=== PATIENT | male | born 1975 | race Caucasian/White ===

== ENCOUNTER 2025-08-28 13:07 | Day surgery (SDC) | payer OTHER, SELFPAY ==
--- NOTE | 2025-08-25 08:27 | P.HP_ITS ---
History of Present Illness *Admission Date: 08/28/25 *History of present illness: Mr. Limon is a 50-year-old gentleman who is here for diagnostic EGD. He does have symptoms of GERD. He does take rdfj-kmy-vqeslja famotidine. He quit drinking alcohol 9 months ago and now feels better. He also states that tea made this worse. He does state that his symptoms would almost always occur when he lay down. He has had acid reflux for more than 10 years. He did have an upper endoscopy in [facility] in 2018 (Alexys Chan). He does not have that report. He does state that he was told that he had a leaky valve . He does state that this often occurs with epigastric abdominal burning but when he lies down this moves up into his chest. He feels as if lava is coming up into his esophagus. When he stopped drinking beer this improved. He was initially placed on omeprazole and started buying [id number] Prilosec. He did eventually read about PPIs and decided to stepdown to famotidine OTC which she is doing presently. He reports no present heartburn, reflux, indigestion, bloating, belching or dyspepsia. He reports no dysphagia. [facility] Disclaimer: The information contained in this section may have been updated after the patient was seen, as this information can be updated by other users. Medical History GERD (gastroesophageal reflux disease) Vitamin D deficiency Surgical History Hx of esophagogastroduodenoscopy No history of previous surgery Family History Other Family history non-contributory Social History (Updated 08/28/25 @ 13:23 by Janelle Mar RN) Smoking Status: Former smoker alcohol intake: former substance use type: denies use current occupational status: employed Travel in the last 8 weeks?: Inside the [place] caffeine: No Have you lived/traveled outside [place] in past 30 days?: No Contact w/someone who lives/traveled outside US past 30 days?: No Exposure to someone with infectious disease in past 14 days?: No Do you have a fever (greater than 100.4 F or 38 C)?: No Have you tested positive for COVID-19?: No Exposed to someone with COVID-19 in past 14 days?: No Do you have a sore throat?: No Do you have a cough?: No Do you have any weakness?: No Are you experiencing any nausea/vomitting?: No Do you have any diarrhea?: No Are you experiencing any unusual bleeding?: No Do you have any muscle aches/pain?: No Do you have any abdominal pain?: No Are you experiencing loss of taste or smell?: No Review of Systems Review of Systems Review of systems (narrative): Negative *Cardiovascular Comments: Negative *Gastrointestinal Comments: Negative *Genitourinary Comments: Negative *Musculoskeletal Comments: Negative *Neurologic Comments: Negative Meds Home Medications and Allergies Home Medications ?Medication ?Instructions ?Recorded ?Confirmed ?Type diphenhydramine HCl 25 mg tablet 25 mg PO HS PRN aller gies 06/14/25 08/28/25 History (Allergy Medicine) famotidine 10 mg tablet 10 mg PO DAILY 06/14/2508/01 History amino acids-multivit with iron and 1 pkg PO DAILY 08/0108/28/25 History minerals oral combo pack New Prescriptions to Start Prescriptions: Allergies Allergy/AdvReac Type Severity Reaction Status Date / Time No Known Allergies Allergy Verified 08/28/25 13:17 Exam *Routine HEENT Exam Head: Present normocephalic Eye: Present EOMI and PERRL ENT: Present mucous membranes moist *Routine Neck Exam Neck: Present supple *Routine Respiratory Exam Respiratory: Present CTA bilaterally *Routine Cardiovascular Exam Cardiovascular: Present RRR *Routine Abdominal Exam Abdominal: Present soft and normoactive bowel sounds; Absent tenderness *Routine Rectal Exam Rectal:: deferred *Routine Genitalia Exam Genitalia:: deferred *Routine Extremities Exam Extremities: Absent cyanosis, clubbing or edema *Routine Skin Exam Skin: Present warm; Absent rash *Routine Neurological Exam Neurological: Present alert and oriented X3 Assessment and Plan *Assessment and plan (1) Dyspepsia: Status: Acute Category: Medical Code(s): R10.13 - Epigastric pain (2) Pyrosis: Status: Acute Category: Medical Code(s): R12 - Heartburn (3) Heartburn: Status: Acute Category: Medical Code(s): R12 - Heartburn (4) GERD (gastroesophageal reflux disease): Status: Acute Category: Medical Code(s): K21.9 - Gastro-esophageal reflux disease without esophagitis Plan A/P: 1. Pyrosis, heartburn, dyspepsia and GERD is the preprocedural diagnosis. The patient will be anesthetized/sedated using MAC sedation. The patient has been seen and examined. Cardiac and lung assessment prior to the examination is stable. Proceed with planned diagnostic EGD.
--- NOTE | 2025-08-28 07:08 | P.PCN_ITS ---
[facility] Procedure Note Date: 08/28/25 Time: 14:13 Procedure Note:: Upper Endoscopy Procedure Report: Esophagogastroduodenoscopy with cold biopsies and TTS balloon dilation Endoscopost: Errol Avery II, MD Referring Physician: Lamine Limon MD Date of Procedure: August 28, 2025 Equipment: Olympus GIF-1100 standard upper endoscope Sedation: MAC sedation Indications: Mr. Limon is a 50-year-old gentleman who is here for diagnostic EGD. He does have some longstanding symptoms of GERD. Since the patient had seen me in the office on 06/14/2025, he has had a loss of voice with hoarseness. He does take gxnk-piu-vnnccgo famotidine. He quit drinking alcohol 9 months ago and now feels better. He also states that tea made this worse. He does state that his symptoms would almost always occur when he lies down. He has had acid reflux for more than 10 years. He did have an upper endoscopy in [facility] in 2018 (Alexys Chan). He does not have that report. He does state that he was told that he had a leaky valve . He does state that this often occurs with epigastric abdominal burning but when he lies down this moves up into his chest. He feels as if lava is coming up into his esophagus. When he stopped drinking beer this improved. He was initially placed on omeprazole and started buying [id number]-[id number] Prilosec. He did eventually read about PPIs and decided to stepdown to famotidine OTC which he is doing presently. He reports no present heartburn, reflux, indigestion, bloating, belching or dyspepsia. He reports no dysphagia. Procedure: Prior to the procedure, a history and physical exam was performed, and patient's medications and allergies were reviewed. The risks, benefits and alternatives of the sedation and procedure were discussed with the patient. All questions were answered and informed consent was obtained. The patient was brought to the procedure room. Patient identification and proposed procedure were verified by the physician and the nurse. The patient was placed in a left lateral decubitus position and the scope was passed under direct vision. Throughout the procedure, the patient's blood pressure, pulse, and oxygen saturations were monitored continuously. The upper GI endoscopy was accomplished without dif ficulty. The patient tolerated the procedure well. Findings: The scope was passed directly into the upper esophagus and advanced to the third portion of the duodenum. The post bulbar duodenum and duodenal bulb were normal with normal mucosa and conniventes. A cold biopsy was taken from the second portion of the duodenum for the disaccharidase assay. The scope was withdrawn through a normal duodenal bulb and pylorus into the stomach. There was some mild linear gastropathy of the antrum. The body and fundus of the stomach were grossly normal. Upon retroflexion there was a 2 cm hiatal hernia. Cold biopsies were taken from the antrum. The scope was then withdrawn into the esophagus. There was grade C (LA classification) reflux esophagitis with linear superficial erosion and superficial ulceration at the GE junction. Cold biopsies were taken from the distal esophagus/GE junction to rule out intestinal metaplasia. There was no obvious Cervantes's esophagus. There were tertiary co ntractions and evidence of mild esophageal dysmotility. There was some cricopharyngeal spasm with dilation of the esophagus to 20 mm/60 German. The remainder of the esophageal mucosa was normal. There was some asymmetry of the false cords with evidence of polyp on the true vocal cords. Impression: 1. Grade C (LA classification) reflux esophagitis with small 2 cm hiatal hernia 2. Cricopharyngeal spasm with mild esophageal dysmotility 3. Vocal cord polyp Plan: The patient does have complicated GERD with reflux esophagitis. Uncomplicated GERD (gastro-esophageal reflux disease) is primarily defined as heartburn and reflux symptoms that occur intermittently and at the time of endoscopy there are no breaks in the esophageal lining caused by esophageal reflux. This can be controlled by dietary measures, short-term antacids or short-term acid reflux therapy. Complicated GERD is defined by having more advanced changes with ulceration, erosion or damage to the esophagus and/or with the presence of Cervantes's esophagus. The patient does not have any obvious Cervantes's. With complicated GERD/reflux we are more apt to recommend proton pump inhibitors (i.e. omeprazole) or Voquezna which are more effective in treating GERD long-term and the risks of not taking a PPI outweigh any risk of taking this therapy. I am going to recommend Voquezna and send this electronically to the pharmacy. I will follow-up the biopsies. I am also going to refer the patient to ENT because of the vocal cord polyp and loss of voice.
[2025-08-28 13:16] VITALS: BP 134/86; PULSE 99; RESP 18; TEMP 36.3; O2SAT 97
[2025-08-28 13:28] VITALS: BMI 22.7
[2025-08-28] MEDS: LACTATED RINGERS 1000ML 1,000 ML 50 ML IV (13:30)
--- NOTE | 2025-08-28 13:42 | EXP.ANES.CKL ---
[facility] Disclaimer: The information contained in this section may have been updated after the patient was seen, as this information can be updated by other users. Medical History GERD (gastroesophageal reflux disease) Vitamin D deficiency Surgical History Hx of esophagogastroduodenoscopy No history of previous surgery Family History Other Family history non-contributory Social History (Updated 08/28/25 @ 13:23 by Janelle Mar RN) Smoking Status: Former smoker alcohol intake: former substance use type: denies use current occupational status: employed Travel in the last 8 weeks?: Inside the [place] caffeine: No Have you lived/traveled outside US in past 30 days?: No Contact w/someone who lives/traveled outside [place] past 30 days?: No Exposure to someone with infectious disease in past 14 days?: No Do you have a fever (greater than 100.4 F or 38 C)?: No Have you tested positive for COVID-19?: No Exposed to someone with COVID-19 in past 14 days?: No Do you have a sore throat?: No Do you have a cough?: No Do you have any weakness?: No Are you experiencing any nausea/vomitting?: No Do you have any diarrhea?: No Are you experiencing any unusual bleeding?: No Do you have any muscle aches/pain?: No Do you have any abdominal pain?: No Are you experiencing loss of taste or smell?: No [facility] Anesthesia Checklist Patient Identification Patient Identification: Arm Band and Family Structural Data Admitted From: Home Planned Operative Procedure/s: EGD Consent for Planned Operative Procedure(s) Verified: Yes Verified Documents: Surgical Consent and History and Physical NPO Status Verified Time NPO: 00:00 Additional verifications Patient : No Anesthesia Reactions: No Hx Blood Transfusions: No Blood Transfusion Reaction: No Cephalosporin Allergy: No Previous Colonoscopy: No Airway Assessment Mallampati Score:: Class II C-Spine Mobility Assessed: Yes TMJ Mobility Assessed: Yes Neurological Assessment Level of Consciousness: Awake, Alert, Appropriate and Follows Commands Hx Seizures: No Numbness or tingling in extremities: No Anesthesia Plan Anesthesia Risk discussed: Yes ASA Class: II Anesthesia Type: MAC Preoperative Comments Pre-Operative Comments: Acid Reflux
[2025-08-28 14:16] VITALS: BP 107/22; PULSE 88; RESP 17; TEMP 36.3; O2SAT 94
[2025-08-28 14:26] VITALS: BP 105/70; PULSE 83; RESP 18; TEMP 36.3; O2SAT 94
[2025-08-28 14:36] VITALS: BP 112/77; PULSE 94; RESP 18; TEMP 36.3; O2SAT 94
[2025-08-28 14:46] VITALS: BP 117/70; PULSE 92; RESP 18; TEMP 36.3; O2SAT 95
[2025-08-31 13:23] LABS: Interpretation Notes (.); Lactase 0.49 (>/= 14.0); Maltase 218.12 (>/= 110.0); Palatinase 13.35 (>/= 8.5); Reference Notes (.); Sucrase 77.64 (>/= 25.0)
== END 2025-08-28 15:11 | disposition home or self-care (01) ==
PROVIDERS: PCP Internal Medicine Adolescent Medicine; Visit Provider Internal Medicine Gastroenterology
PROC: 0DJ08ZZ Inspection of Upper Intestinal Tract, Via Natural or Artificial Opening Endoscopic (ICD-10-PCS; CPT 43239; principal; 2025-08-28 14:00)
DX: K31.89 Other diseases of stomach and duodenum (principal); K21.00 Gastro-esophageal reflux disease with esophagitis, without bleeding; K44.9 Diaphragmatic hernia without obstruction or gangrene; J39.2 Other diseases of pharynx; K22.4 Dyskinesia of esophagus; J38.1 Polyp of vocal cord and larynx; R49.0 Dysphonia; Z87.891 Personal history of nicotine dependence
CPT/HCPCS: 43239; 43249; 82657; C1726; J2003; J2704; J7120